=== PATIENT | male | born 1985 | race Caucasian/White ===

== ENCOUNTER → 2020-07-30 | Outpatient (CLI) | payer OTHER ==
[~2020-07-30] MED LIST: COZAAR100 MG PO; NORVASC10 MG PO; TOPROL XL100 MG PO
== END ==
LOC: M.LAB 11:00
PROVIDERS: ATTEND Surgery
DX: Z01.812 Encounter for preprocedural laboratory examination (principal); Z20.828 Contact with and (suspected) exposure to other viral communicable diseases; K42.9 Umbilical hernia without obstruction or gangrene

== ENCOUNTER → 2020-08-02 | Day surgery (SDC) | payer OTHER ==
[~2020-08-02] MED LIST changes: +ROXICODONE5 M2 PO
--- NOTE | ~2020-08-02 | OP ---
[address] [address] OPERATIVE REPORT Name: SURESH GREY Room: [facility].#: [id number] Admission: 08/02/20 Attend Phys: Bev Toribio DO Discharge: Date of : 83 Report #: [id number] THIS REPORT FOR: //name// cc: Pravin Hebert MD, William MD ~ CC: Bev Hebert MD DICTATED BY: Evaristo Longo DO DATE OF SERVICE: 08/02/2020 PREOPERATIVE DIAGNOSIS: Incarcerated umbilical hernia. POSTOPERATIVE DIAGNOSIS: Incarcerated supraumbilical hernia. FINDINGS: An 8 x 8-mm hernia defect containing incarcerated omentum. SURGEON: Bev Toribio DO CO-SURGEON: Evaristo Longo DO, PGY5 ADULT LIVE IN CAREGIVER: Fabian Wu DO, PGY1 OPERATION PERFORMED: Primary repair of incarcerated supraumbilical hernia. ANESTHESIA: General and local. ESTIMATED BLOOD LOSS: 3 mL. SPECIMEN: Hernia sac and contents. COMPLICATIONS: None. INDICATIONS: The patient is a 34-year-old male, who presented to our clinic with complaints of severe umbilical pain with an associated bulge as well as nausea and vomiting. He was found on physical exam to have a small incarcerated umbilical hernia. He was informed of the risks and benefits of repair with possible mesh with the risks, including but not limited to bleeding, infection, mesh complications, need for reoperation, and hernia recurrence. He understood this and decided to proceed with surgery. TECHNIQUE: After informed consent was obtained, the patient was brought to the operating room and placed in supine position. SCDs were on and running. Preoperative antibiotics were delivered. General anesthesia was administered [facility] [address] [id number] OPERATIVE REPORT Name: SURESH GREY Room: [facility].#: [id number] Admission: 08/02/20 Attend Phys: Bev Toribio DO Discharge: Date of : 83 Report #: [id number] with an LMA. The patient was prepped and draped in the usual sterile fashion. A surgical pause was held to confirm proper patient and procedure. A 0.5% Marcaine was injected at the planned incision site. A horizontal superior to the umbilicus 4-cm incision was made with a 15 blade. Dissection was carried through the subcutaneous tissue using cautery. The hernia sac was identified and circumferentially dissected with a combination of blunt dissection and cautery. The defect was superior to the umbilicus and completely separate from the umbilicus. The umbilical stalk was not dissected. Once the hernia sac was completely dissected free from the surrounding tissue, the hernia sac was amputated at the level of the fascia. The incarcerated omentum was similarly transected using cautery. This was passed off as specimen. The transected omentum was returned into the abdomen; it was hemostatic. The defect was measured and 8 x 8 mm. A finger was unable to be passed through the defect due to its small size. Therefore, it was decided to perform a primary repair without mesh. A 0 Prol[address] was used to place 3 inverted interrupted sutures to close the fascial defect. Once this was complete, the wound was closed in layered fashion using 2-0 Vicryl and 3-0 Vicryl and the skin was closed using 4-0 Monocryl. The wound was cleansed and dressed with Dermabond. All counts were correct. The patient was emerged from anesthesia and transferred to the PACU in stable condition. There were no complications. By: [id number] Toribio DO /nt
--- NOTE | 2020-08-02 16:19 | EKG ---
[place] [address] ELECTROCARDIOGRAM REPORT Name: MATILDASURESH Room: [facility]#: [id number] Admission: 08/02/20 Attend Phys: Bev Toribio, Discharge: Date of : 83 Date of Service: 08/02/20 1035 Report #: [id number] THIS REPORT FOR: //name// [facility] Test Date: 2020-08-02 Test Time: 10:35:34 Pat Name: SURESH GREY Department: Room: Gender: Gym Attendant: ORLIN : 1985 Requested By: Bev Toribio Order Number: [id number] Reading MD: Quinn Martinez Measurements Intervals [place] Rate: 71 P: 23 GA: 155 QRS: 32 QRSD: 104 T: 15 QT: 385 QTc: 419 Interpretive Statements Sinus rhythm Probable left ventricular hypertrophy ST elev, probable normal early repol pattern Compared to ECG 04/20/2006 02:57:38 ST (T wave) deviation now present Early repolarization no longer present Electronically Signed On 08-02-2020 16:19:07 CDT by Quinn Martinez [email or web address] <ELECTRONICALLY SIGNED> By: Quinn Martinez MD, FAC 08/02/20 1619 1035 1035 Quinn Martinez MD, [facility] /EPI
== END | disposition home or self-care (01) ==
LOC: M.SUR
PROVIDERS: ATTEND Surgery
DX: K43.6 Other and unspecified ventral hernia with obstruction, without gangrene (principal); I10 Essential (primary) hypertension; Z98.890 Other specified postprocedural states; Z79.899 Other long term (current) drug therapy; Z82.49 Family history of ischemic heart disease and other diseases of the circulatory system; Z88.8 Allergy status to other drugs, medicaments and biological substances; Z83.3 Family history of diabetes mellitus